=== PATIENT | female | born 1980 | race Caucasian/White ===

== ENCOUNTER 2018-09-25 02:21 | Emergency (ER) | payer OTHER ==
[~2018-09-25] VITALS: Ht 167.6 cm; Wt 59.0 kg
--- NOTE | 2018-09-25 02:38 | NUR ---
Pt provided urine sample, sent to lab.
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
[2018-09-25] MEDS ORDERED: MORPHINE SULFATE 4 MG/1 ML DISP.SYRIN IM ONE (02:45)
[2018-09-25] MEDS ORDERED: MORPHINE SULFATE 4 MG/1 ML DISP.SYRIN ONE (02:57)
[2018-09-25] MEDS ORDERED: MORPHINE SULFATE 2 MG/1 ML DISP.SYRIN ONE (02:57)
[2018-09-25 03:10] LABS: *URINE HCG, QUAL NEGATIVE (NEGATIVE)
[2018-09-25] MEDS ORDERED: diphenhydrAMINE 50 MG/1 ML VIAL ONE (03:37)
[2018-09-25] MEDS ORDERED: HYDROMORPHONE 1 MG/1 ML DISP.SYRIN ONE (03:38)
[2018-09-25] MEDS ORDERED: HYDROMORPHONE 1 MG/1 ML DISP.SYRIN IM ONE (03:45)
[2018-09-25] MEDS ORDERED: diphenhydrAMINE 50 MG/1 ML VIAL IM ONE (03:45)
--- NOTE | 2018-09-25 03:45 | NUR ---
Patient discharged to home in stable conditon. Written and verbal after care instructions given. Patient verbalizes understanding of instructions. pt walked out of ER in stable gait w who will drivehome. All belongings w pt. VSS. No acute distress noted.
[2018-09-25 03:46] VITALS: BP 118/69
== END 2018-09-25 03:50 | disposition home or self-care (01) ==
LOC: EDBD 02:21 → ER 02:21
DX: S00.511A Abrasion of lip, initial encounter (principal); S39.91XA Unspecified injury of abdomen, initial encounter; Y04.2XXA Assault by strike against or bumped into by another person, initial encounter; Y93.89 Activity, other specified; Y92.89 Other specified places as the place of occurrence of the external cause; Y99.8 Other external cause status
CPT/HCPCS: 70450; 84703; 96372 ×3; 99284; J1170; J1200; J2270 ×2; A4663